=== PATIENT | male | born 1965 | race Hispanic/Latino ===

== ENCOUNTER 2022-08-25 05:55 | Day surgery (SDC) | payer SELFPAY ==
[2022-08-18 09:49] VITALS: BP 179/100
[2022-08-18 09:57] LABS: BASOPHILS % (AUTO) 0.6 % (0.0-5.0); EOSINOPHILS % (AUTO) 2.3 % (0.0-8.0); HEMATOCRIT 43.3 % (42-54); LYMPHOCYTES % (AUTO) 28.9 % (21.0-51.0); MEAN CORPUSCULAR HEMOGLOBIN 30.1 pg (27.0-33.0); MEAN CORPUSCULAR HGB CONC 34.6 g/dL (32.0-36.0); MEAN CORPUSCULAR VOLUME 86.8 fL (79-99); MONOCYTES % (AUTO) 6.6 % (3.0-13.0); NEUTROPHILS % (AUTO) 61.4 % (40.0-77.0); PLATELET COUNT (AUTO) 213 K/uL (130-400); RED BLOOD CELL COUNT(AUTO) 4.99 MIL/uL (4.50-6.20); RED CELL DISTRIBUTION WIDTH 12.7 % (11.0-15.5); WHITE BLOOD COUNT (AUTO) 4.9 K/uL (4.8-10.8)
[2022-08-18 10:14] LABS: BILIRUBIN,DIRECT 0.1 mg/dL (0.0-0.3); CREATININE 1.2 mg/dL (0.5-1.5); POTASSIUM 4.3 mmol/L (3.5-5.1); TOTAL PROTEIN, SERUM 7.4 g/dL (6.0-8.3)
[2022-08-25] VITALS (15 sets, daily range): BP systolic 99–135; BP diastolic 51–86
[~2022-08-25] VITALS: Ht 170.2 cm; Wt 78.4 kg
[2022-08-25] MEDS ORDERED: LACTATED RINGERS 1000ML 1,000 ML IV ONE (06:20)
[2022-08-25] MEDS ORDERED: CEFAZOLIN SODIUM 2 GM VIAL ONE (06:20)
[2022-08-25] MEDS ORDERED: MIDAZOLAM HCL 1 MG/ML 2ML VIAL ONE (06:52)
[2022-08-25] MEDS ORDERED: ONDANSETRON 4MG INJ ONE (06:52)
[2022-08-25] MEDS ORDERED: LIDOCAINE PF 100MG/5ML (2%) SYRINGE 5ML ONE (06:52)
[2022-08-25] MEDS ORDERED: PROPOFOL 10 MG/ML 20ML VIAL IV ONE (06:52)
[2022-08-25] MEDS ORDERED: SUCCINYLCHOLINE 200MG/10ML SYR ONE (06:52)
[2022-08-25] MEDS ORDERED: DEXAMETHASONE SOD PHOSPHATE 10MG/ML 1ML VIAL ONE (06:52)
[2022-08-25] MEDS ORDERED: FENTANYL CITRATE PF 50 MCG/1 ML 5ML AMP IV ONE (06:53)
[2022-08-25] MEDS ORDERED: ROCURONIUM 10MG/1ML SYR 10 MG/ML ML ONE (06:53)
[2022-08-25] MEDS ORDERED: BUPIVACAINE/PF 0.5% 30ML VIAL ONE (07:19)
[2022-08-25] MEDS ORDERED: LIDOCAINE 2%-EPI 1:200,000 20 ML VIAL IJ ONE (07:20)
[2022-08-25] MEDS ORDERED: BUPIVACAINE/PF 0.5% 30ML VIAL INJ ONE (07:29)
[2022-08-25] MEDS ORDERED: ISOVUE-370 50ML VIAL IV ONE (07:31)
[2022-08-25] MEDS ORDERED: IOHEXOL-350 50ML VIAL IV ONE (07:37)
[2022-08-25] MEDS ORDERED: NEOSTIGMINE 5MG/5ML SYR IV ONE (07:48)
[2022-08-25] MEDS ORDERED: GLYCOPYRROLATE 1 MG/5 ML SYRINGE ONE (07:48)
[2022-08-25] MEDS ORDERED: PHENYLEPHRINE HCL 10 MG/ML 1ML VIAL IV ONE (07:57)
== END 2022-08-25 10:31 | disposition home or self-care (01) ==
LOC: DAH 05:55
PROVIDERS: ATTEND Surgery
DX: K80.12 Calculus of gallbladder with acute and chronic cholecystitis without obstruction (principal); Z20.822 Contact with and (suspected) exposure to COVID-19; K82.8 Other specified diseases of gallbladder; Z82.49 Family history of ischemic heart disease and other diseases of the circulatory system; Z82.61 Family history of arthritis; Z82.0 Family history of epilepsy and other diseases of the nervous system; Z79.899 Other long term (current) drug therapy
CPT/HCPCS: 80076; 80048; 85025; 87426; 36415; 47563; 88304; 74300; A6260; J7030; C1758; J7120; J3010; J0330; J3490 ×4; J1100; J2710; J2001; J2250; J2704; J2405; J2370; Q9967; J0690; A4649 ×2; A6252; A4930 ×3; A5120; A4215; A4223; A4222; A4221; A4663; A4600